=== PATIENT | male | born 1980 | race Caucasian/White ===

== ENCOUNTER 2020-09-16 09:08 | Emergency (ER) | payer MEDICARE, MEDICAID ==
[~2020-09-16] VITALS: Ht 157.5 cm; Wt 45.5 kg
[2020-09-16 09:10] VITALS: BP 140/89
[2020-09-16] MEDS ORDERED: [UNRECOGNIZED DRUG - CODE] PO (09:12)
[2020-09-16] MEDS ORDERED: PROPARACAINE HCL 0.5% 15 ML OPHTHALMIC SOLUTION OU ONE (10:00)
[2020-09-16] MEDS ORDERED: FLUORESCEIN SODIUM 1 MG STRIP ONE (10:17)
[2020-09-16] MEDS ORDERED: ERYTHROMYCIN 0.5% 3.5 GM TUBE OPHTHALMIC OINTMENT OS ONE (11:45)
[2020-09-16] MEDS ORDERED: GENTAMICIN SULFATE 0.3% OPHTHALMIC SOLUTION 5 ML OS ONE (11:45)
== END 2020-09-16 12:24 | disposition home or self-care (01) ==
LOC: EMS 09:20
DX: S05.02XA Injury of conjunctiva and corneal abrasion without foreign body, left eye, initial encounter (principal); H10.9 Unspecified conjunctivitis; X58.XXXA Exposure to other specified factors, initial encounter; Y93.89 Activity, other specified; Y92.89 Other specified places as the place of occurrence of the external cause; Y99.8 Other external cause status
CPT/HCPCS: 99283; 99284